=== PATIENT | female | born 1985 | race Caucasian/White ===

== ENCOUNTER → 2018-06-10 | Outpatient (CLI) | payer OTHER | LOC: CIMAGING 16:20 | PROVIDERS: ATTEND Family Medicine | DX: R10.2 Pelvic and perineal pain (principal); K59.00 Constipation, unspecified; M41.9 Scoliosis, unspecified; Z97.5 Presence of (intrauterine) contraceptive device | CPT/HCPCS: 74022-PO; 76856-PO ==